=== PATIENT | female | born 1955 | race African-American/Black ===

== ENCOUNTER 2019-04-22 15:48 | Emergency (ER) | payer OTHER, SELFPAY ==
--- NOTE | 2019-04-22 17:17 | CT ---
CT OF CHEST PERFORMED WITHOUT CONTRAST ENHANCEMENT: 04/22/19 HISTORY: Fall, pain under left breast region. The lungs are clear of any infiltrative process. There is subsegmental atelectatic changes in the melva g bases. No pleural effusion or pneumothorax. There are very subtle nondisplaced rib fractures on the left beginning anteriorly at the third rib and extending more laterally to the level of the seventh rib. Mediastinal structures appear unremarkable given limitations of a noncontrast study. Thoracic aorta i s normal in caliber. The liver shows diffuse fatty change. The spleen normal in appearance. IMPRESSION: 1. Nondisplaced left third through seventh fractures. 2. Diffuse fatty change of the liver. POS: TPC
[2019-04-22] MEDS ORDERED: HYDROcodone/Acetaminophen 5/325 mg Tablet ONE (17:29)
--- NOTE | 2019-04-22 18:11 | RAD ---
LEFT HAND THREE VIEWS: 04/22/19 HISTORY: Injury, left hand pain. FINDINGS/IMPRESSION: No acute fracture or dislocation is seen. POS: OFF
[2019-04-22 19:23] LABS: Prothrombin Time 13.1 SEC (12.0-14.7)
[2019-04-22 19:33] LABS: ALT (SGPT) 83 U/L (8-55); AST (SGOT) 96 U/L (5-34); Albumin 4.2 g/dL (3.4-4.8); Alkaline Phosphatase 100 U/L (40-110); Anion Gap 18 mmol/L (10-20); BUN (Urea Nitrogen) 16 mg/dL (9.8-20.1); Bilirubin, Total 0.7 mg/dL (0.2-1.2); Calc. Creatinine Clearance 0 mL/min (70-130); Carbon Dioxide 26 mmol/L (23-31); Chloride 103 mmol/L (98-107); Estimated GFR-MDRD 43; Globulin 3.4 g/dL (2.4-3.5); Glucose 149 mg/dL (80-115); Potassium 3.7 mmol/L (3.5-5.1); Protein, Total 7.6 g/dL (6.0-8.3); Sodium 143 mmol/L (136-145)
[2019-04-22 19:48] LABS: Hemoglobin 14.5 g/dL (12.0-16.0); Lymphocytes 21 % (21-51); MDiff Complete? YES; Mean Corpuscular HGB CONC 30.1 g/dL (32.0-36.0); Mean Corpuscular Hemoglobin 26.7 pg (27.0-31.0); Mean Corpuscular Volume 88.8 fL (78.0-98.0); Mean Platelet Volume 8.1 fL (7.4-10.4); Monocytes 3 % (0-10); Neutrophil 76 % (42-75); Platelet Count 382 thou/uL (130-400); Platelet Morphology Comment Appears Adequate; RBC Distribution Width 11.8 % (11.5-14.5); RBC Morphology Normal; Red Blood Cell (RBC) Count 5.43 mill/uL (4.20-5.40); White Blood Cell (WBC) Count 11.6 thou/uL (4.8-10.8)
== END 2019-04-22 19:40 | disposition short-term general hospital (02) ==
LOC: MADERS 15:48
DX: S22.42XA Multiple fractures of ribs, left side, initial encounter for closed fracture (principal); M79.642 Pain in left hand; M79.641 Pain in right hand; I10 Essential (primary) hypertension; E11.9 Type 2 diabetes mellitus without complications; Z79.84 Long term (current) use of oral hypoglycemic drugs; Z79.899 Other long term (current) drug therapy; W01.10XA Fall on same level from slipping, tripping and stumbling with subsequent striking against unspecified object, initial encounter
CPT/HCPCS: 71250; 80053; 85025; 85610